=== PATIENT | female | born 1990 | race African-American/Black ===

== ENCOUNTER 2016-10-09 07:13 | Emergency (ER) | payer OTHER ==
[~2016-10-09] VITALS: Ht 157.5 cm; Wt 49.9 kg
--- NOTE | 2016-10-09 07:15 | NUR ---
SOB X 2 DAYS, CHEST TIGHTNESS SINCE LAST NIGHT. NAD NOTED. AAO X4, AMB WITH STEADY GAIT. RR EVEN AND UNLABORED. MD AT BEDSIDE FOR EVAL.
[2016-10-09] MEDS ORDERED: IBUPROFEN 400 MG TABLET ONE (07:37)
[2016-10-09] MEDS ORDERED: IBUPROFEN 400 MG TABLET PO ONE (08:00)
[2016-10-09 08:40] VITALS: BP 111/79
== END 2016-10-09 08:43 | disposition home or self-care (01) ==
LOC: ER 07:15
DX: M94.0 Chondrocostal junction syndrome [Tietze] (principal); K21.9 Gastro-esophageal reflux disease without esophagitis
CPT/HCPCS: 71010; 93005; 99284; A4606; Z7610